=== PATIENT | male | born 1950 | race Hispanic/Latino ===

== ENCOUNTER 2017-10-13 10:05 | Outpatient (CLI) | payer MEDICARE, OTHER ==
[2017-10-13] MEDS ORDERED: Iopamidol 370 76% 100 ML VIAL ONE (12:31)
== END 2017-10-13 10:06 | disposition home or self-care (01) ==
LOC: BICCT 10:05
PROVIDERS: ATTEND Family Medicine
DX: R31.9 Hematuria, unspecified (principal); K40.90 Unilateral inguinal hernia, without obstruction or gangrene, not specified as recurrent; N32.89 Other specified disorders of bladder
CPT/HCPCS: 74178

== ENCOUNTER 2017-10-22 15:59 | Outpatient (CLI) | payer MEDICARE, OTHER ==
[2017-10-22 17:16] LABS: Hemoglobin 14.9 g/dL (14.0-18.0); Mean Corpuscular Hemoglobin 32.1 pg (27.0-31.0); Mean Corpuscular Volume 94.6 fl (80.0-94.0); Mean Platelet Volume 7.8 fL (7.4-10.4); Platelet Count 220 thou/uL (130-400); RBC Distribution Width 11.8 % (11.5-14.5); Red Blood Cell (RBC) Count 4.64 mill/uL (4.70-6.10); White Blood Cell (WBC) Count 9.8 thou/uL (4.8-10.8)
[2017-10-22 17:17] LABS: Bilirubin Negative (Negative); Blood, Urine Negative (Negative); Clarity CLEAR (Clear); Glucose, Urine (Dipstick) Negative (Negative); Leukocyte Negative (Negative); Nitrite Negative (Negative); Protein, Urine (Dipstick) Negative (Neg-Trace); Specific Gravity, Urine 1.029 (1.002-1.036); Urobilinogen 0.2 mg/dL (0.2-1.0); pH, Urine 5.5 (5.0-9.0)
[2017-10-22 17:20] LABS: PTT 26.5 SEC (22.9-36.1); Prothrombin Time 13.2 SEC (12.0-14.7)
[2017-10-22 17:22] LABS: Bacteria/HPF None Seen HPF (None Seen); Hyaline Casts/LPF 0-3 HYALINE CAST LPF (0-3 Hyaline); Pathc Cast-AUWi Flag 0.13 (0-2.49); Squamous Epithelial None Seen HPF (0-3); WBC/HPF 0-3 HPF (0-3)
[2017-10-22 17:33] LABS: Anion Gap 12 mmol/L (10-20); BUN (Urea Nitrogen) 18 mg/dL (8.4-25.7); Calc. Creatinine Clearance 0 mL/min (70-130); Calcium 9.6 mg/dL (7.8-10.44); Carbon Dioxide 27 mmol/L (23-31); Chloride 103 mmol/L (98-107); Estimated GFR-MDRD Greater than 90; Glucose 89 mg/dL (80-115); Potassium 4.4 mmol/L (3.5-5.1); Sodium 138 mmol/L (136-145)
--- NOTE | 2017-10-25 09:25 | EKG ---
Test Reason : Blood Pressure : / mmHG Vent. Rate : 058 BPM Atrial Rate : 058 BPM P-R Int : 128 ms QRS Dur : 070 ms QT Int : 402 ms P-R-T Axes : 065 025 033 degrees QTc Int : 394 ms Sinus bradycardia Otherwise normal ECG No previous ECGs available Confirmed by KATHRIN MOREL ([id number]) on 10/25/2017 9:25:02 AM Referred By: PAULY Confirmed By:KATHRIN MOREL
== END 2017-10-22 16:00 | disposition home or self-care (01) ==
LOC: LABBT 15:59
PROVIDERS: ATTEND Urology
DX: Z01.818 Encounter for other preprocedural examination (principal); C67.9 Malignant neoplasm of bladder, unspecified
CPT/HCPCS: 80048; 81001; 85027; 85610; 85730; 86850; 86900; 86901; 93005; 93010

== ENCOUNTER 2017-10-27 11:25 | Day surgery (SDC) | payer MEDICARE, OTHER ==
[2017-10-22 16:21] VITALS: BMI 22.6
[2017-10-27] MEDS ORDERED: Fentanyl 100 MCG/2 ML VIAL ONE ×2 (11:53→14:15)
[2017-10-27] MEDS ORDERED: HYDROmorphone 0.5 MG/0.5 ML SYRINGE ONE (11:53)
[2017-10-27] MEDS ORDERED: Levofloxacin 500 mg/D5W 100 ml Premix Bag ONE (12:57)
[2017-10-27] MEDS ORDERED: ADMIXTURE FEE IV SCH (13:00)
[2017-10-27] MEDS ORDERED: MITOMYCIN IV SCH (13:00)
[2017-10-27] MEDS ORDERED: STERILE WATER IV SCH (13:00)
[2017-10-27] MEDS ORDERED: MITOMYCIN I-VESIC SCH (13:15)
[2017-10-27] MEDS ORDERED: STERILE WATER I-VESIC SCH (13:15)
[2017-10-27] MEDS ORDERED: ADMIXTURE FEE I-VESIC SCH (13:15)
[2017-10-27] MEDS ORDERED: Midazolam HCl 2 mg/2 ml Vial ONE (14:15)
[2017-10-27] MEDS ORDERED: Lidocaine 1% PF 5 ML VIAL ONE (14:39)
[2017-10-27] MEDS ORDERED: PHENYLEPHRINE-NS 100 MCG/ML 10 ML SYRINGE ONE (14:39)
[2017-10-27] MEDS ORDERED: Propofol 200 MG/20 ML VIAL ONE (14:39)
[2017-10-27] MEDS ORDERED: Succinylcholine Chloride 20 MG/ML 10 ml SYRINGE FS ONE (14:39)
[2017-10-27] MEDS ORDERED: Glycopyrrolate 0.2 MG/ML 5 ML SYRINGE ONE (14:39)
[2017-10-27] MEDS ORDERED: B & O ONE (14:47)
[2017-10-27] MEDS ORDERED: SUGAMMADEX SODIUM 200 MG/2 ML VIAL ONE (15:05)
--- NOTE | 2017-10-27 15:13 | OP ---
DATE OF PROCEDURE: 10/27/2017 SERVICE: Urology. SURGEON: Trace Luther M.D. PREOPERATIVE DIAGNOSIS: Bladder mass. POSTOPERATIVE DIAGNOSIS: Urothelial carcinoma. PROCEDURE PERFORMED: Transurethral resection of bladder tumor between 2 and 5 cm. INDICATIONS FOR PROCEDURE: Mr. Shah is a 67-year-old male who was sent to me for leonel s hematuria and CT demonstrating a concerning bladder mass. After reviewing the CT, I told him there was a high probability that this mass represented the urothelial carcinoma based on its appearance, I gave him the option of either consider cystoscopy in the office for diagnosis or going straight to the operating room with plans to do a resection with mitomycin C afterwards, he elected to go straigh t to the OR instead, risks and benefits of the surgery have been discussed including a possible negat chasity cystoscopy and he has agreed to proceed forward. DESCRIPTION OF PROCEDURE: After identification of his armband and verification of consent, the patie nt was brought to the operating room where he underwent general anesthesia with endotracheal intubati on as well as paralysis. He was then placed in dorsal lithotomy position, prepped and draped in usua l sterile fashion. After appropriate timeout, a lubricated 24 Syriac rigid cystoscope with visual ob turator was then placed through the urethra into the bladder. The urethra was unremarkable. The pro state demonstrated calcifications but no significant hypertrophy. The bladder had a notable flat pap illary-type tumor along the right bladder wall just cephalad to the ureteral orifice with significant microsatellite lesions surrounding the primary lesion. No other tumors were noted on full cystoscop y. Both ureters were in orthotopic location effluxing clear urine. The visual obturator was then sw itched out for the bladder gyrus resectoscope loop. Resection was carried out with the bladder parti ally underdistended to avoid obturator nerve reflex. The lesion was resected completely and detrusor fibers were visible underneath the resection site. The remaining microsatellite lesions surrounding the primary tube were just fulgurated as they were too small to resect. Total fulguration area was approximately 4-5 cm with the primary tumor measuring about 2-3 cm. Upon completion, there was excel lent hemostasis. The base was cauterized again to ensure that there was no bleeding. The bladder wa s partially underdistended to ensure that there was no bleeding that was started with the bladder plu s the tumor was evacuated using the resectoscope and then the bladder was refilled and the resectosco pe removed. An 18 Syriac Tovar catheter was then placed in through the urethra into the bladder and drained completely. The bladder was flushed once and was completely clear. Mitomycin-C 40 mg and 20 mL of water was instilled into the catheter into the bladder with a cap placed over the tip of the F oley. B and O suppository was placed in the patient's rectum. He was then awakened and taken to PAC U for recovery in stable condition. COMPLICATIONS: None. ESTIMATED BLOOD LOSS: Minimal. RETAINED TUBES AND DRAINS: An 18 Syriac Tovar catheter capped with mitomycin C instilled. SPECIMENS: Bladder tumor. DISPOSITION: Patient will be discharged home after he stays in the PACU for an hour and had his jermaine mycin C drained out. He will undergo void trial and then can be discharged home with followup on an outpatient basis.
== END 2017-10-27 20:29 | disposition home or self-care (01) ==
LOC: SDC 11:25
PROVIDERS: ATTEND Urology
PROC: 0TBB8ZX Excision of Bladder, Via Natural or Artificial Opening Endoscopic, Diagnostic (ICD-10-PCS; principal; 2017-10-27)
DX: C67.9 Malignant neoplasm of bladder, unspecified (principal); K21.9 Gastro-esophageal reflux disease without esophagitis; F17.210 Nicotine dependence, cigarettes, uncomplicated; Z88.0 Allergy status to penicillin; Z91.040 Latex allergy status; Z91.048 Other nonmedicinal substance allergy status; Z98.890 Other specified postprocedural states
CPT/HCPCS: 51798; 52235; 88307; J9280; 88305; A4216; J0131; J1170; J1956; J2001; J2250; J2704; J3010

== ENCOUNTER 2018-05-26 10:36 | Outpatient (CLI) | payer MEDICARE, OTHER ==
--- NOTE | 2018-05-26 12:42 | MRI ---
MRI RIGHT SHOULDER WITHOUT CONTRAST: Date: 05/26/18 HISTORY: Tear of rotator cuff. M75.101. COMPARISON: None. FINDINGS: Biceps Tendon: The extra-articular biceps tendon is torn, scarred down to the intertubercular groove. No normal intr a-articular biceps tendon is appreciated. Labrum: There is tearing throughout the superior and posterior labrum with loss of volume of anterior inferio r labrum, likely chronic tearing. Rotator Cuff: There is extensive undersurface partial tearing and fraying of the supraspinatus tendon proximal to t he footprint with interstitial delamination extending into the footprint at the posterior 5 mm fibers . Mild tendinosis and interstitial tearing of the infraspinatus tendon. A full thickness perforation is not appreciated. There is extensive undersurface deep fiber partial tearing of the subscapularis craniad fibers. Soft Tissues: Moderate subacromial/subdeltoid bursal effusion. There is synovitis of the rotator interval. Axillary pouch is thickened. Bones: Mild degenerative changes acromioclavicular joint. Type III acromion with thickened undersurface oste ophyte at the coracoacromial ligament insertion. Subacromial space is thus narrowed to approximately 4 mm. Cartilage: No high grade full thickness chondral loss is appreciated. Muscles: Muscle bulk is normal. No atrophy. IMPRESSION: 1. Rupture of the extra-articular biceps tendon at the intertubercular groove, scarred down, with no intra-articular biceps tendon remaining. 2. Extensive tearing throughout the labrum. 3. High grade undersurface partial tearing of nearly the entire supraspinatus tendon, approximately 50-65%, separate from the footprint with interstitial delamination extending to the footprint of the posterior 5 mm fibers. No full thickness perforation. 4. High grade undersurface partial tearing of subscapularis. 5. Fibrosis along the rotator interval with thickened axillary pouch can be seen with capsulitis in the correct clinical setting. 6. Type III acromion. Narrowing of subacromial space, approximately 4 mm, with moderate subacromial/ subdeltoid bursal effusion. POS: [facility]
== END 2018-05-26 10:37 | disposition home or self-care (01) ==
LOC: TBSIIMAG 10:36
PROVIDERS: ATTEND Orthopaedic Surgery
DX: M75.111 Incomplete rotator cuff tear or rupture of right shoulder, not specified as traumatic (principal); S46.211A Strain of muscle, fascia and tendon of other parts of biceps, right arm, initial encounter; S43.491A Other sprain of right shoulder joint, initial encounter; M25.411 Effusion, right shoulder; M25.811 Other specified joint disorders, right shoulder

== ENCOUNTER 2018-11-05 10:01 | Outpatient (CLI) | payer MEDICARE, OTHER ==
--- NOTE | 2018-11-05 11:04 | RAD ---
CHEST TWO VIEWS: History: Dyspnea. Comparison: 10-31-15 FINDINGS: Cardiac silhouette and pulmonary vasculature are unremarkable. Mediastinum is midline. No confluent a irspace consolidation, pneumothorax, or pleural fluid are apparent. IMPRESSION: No active cardiopulmonary abnormalities are demonstrated. POS: [facility]
== END 2018-11-05 10:02 | disposition home or self-care (01) ==
LOC: RAD 10:01
PROVIDERS: ATTEND Internal Medicine
DX: R06.00 Dyspnea, unspecified (principal)
CPT/HCPCS: 71046

== ENCOUNTER 2018-11-11 14:57 | Outpatient (CLI) | payer MEDICARE, OTHER | END 2018-11-11 14:58 | disposition home or self-care (01) | LOC: CP 14:57 | PROVIDERS: ATTEND Internal Medicine | DX: R07.9 Chest pain, unspecified (principal); R06.00 Dyspnea, unspecified; G47.33 Obstructive sleep apnea (adult) (pediatric) | CPT/HCPCS: 94060; 94727; 94729 ==

== ENCOUNTER 2018-11-17 10:50 | Outpatient (CLI) | payer MEDICARE, OTHER ==
[~2018-11-17 10:50] MED LIST: Iopamidol 370 76% 100 ML VIAL ONE
--- NOTE | 2018-11-17 13:50 | CT ---
CT ABDOMEN AND PELVIS PERFORMED WITH AND WITHOUT CONTRAST ENHANCEMENT: History: Bladder cancer. Surgery to the remove the cancer and chemotherapy. Comparison: 10-13-17, 09-24-16 CT examinations. FINDINGS: The lung bases are clear. The liver, spleen, pancreas, and gallbladder regions all appear unremarkable. Right and left adrenal glands and right and left kidneys are normal in size. No renal calculi. No obs truction. There is a left parapelvic renal cyst present. No dilatation of either collecting system or evidence of any filling defects within either the ureters or within the collecting systems within th e kidneys. There is no significant periaortic adenopathy. There is a vu mesentery present. This alvarez s been noted on the previous exams. It is associated with some small mesenteric nodes. I do not see i f there is a definite interval change in the size of the nodes as compared to the 10-13-17 study, slig htly more prominent than on the earlier exams. CT OF PELVIS PERFORMED WITH AND WITHOUT CONTRAST ENHANCEMENT: The appendix is normal. No bladder mass is appreciated. No significant pelvic lymphadenopathy. IMPRESSION: 1. No signs of any metastatic disease. No signs of any abnormal adenopathy within the abdomen or pelv is. 2. Vu mesentery with slightly prominent mesenteric nodes, essentially stable. POS: [facility]
== END 2018-11-17 10:51 | disposition home or self-care (01) ==
LOC: BICCT 10:50
PROVIDERS: ATTEND Urology
DX: C67.2 Malignant neoplasm of lateral wall of bladder (principal); R93.5 Abnormal findings on diagnostic imaging of other abdominal regions, including retroperitoneum
CPT/HCPCS: 74178; 82565; Q9967

== ENCOUNTER 2018-12-20 18:00 | Outpatient (CLI) | payer MEDICARE, OTHER | END 2018-12-20 18:01 | disposition home or self-care (01) | LOC: SLEEPLAB 18:00 | PROVIDERS: ATTEND Internal Medicine | DX: G47.33 Obstructive sleep apnea (adult) (pediatric) (principal); R53.83 Other fatigue; K21.9 Gastro-esophageal reflux disease without esophagitis; R06.83 Snoring; R35.1 Nocturia; R51 Headache; G47.00 Insomnia, unspecified; G47.10 Hypersomnia, unspecified; R06.3 Periodic breathing | CPT/HCPCS: 95806 ==

== ENCOUNTER 2019-05-11 07:11 | Outpatient (CLI) | payer MEDICARE, OTHER ==
--- NOTE | 2019-05-11 09:20 | CT ---
CT ABDOMEN AND PELVIS WITH AND WITHOUT IV CONTRAST: HISTORY: Cancer of the lateral wall of the urinary bladder COMPARISON: 11/17/2018 FINDINGS: The lung bases are clear. No calcified gallstones are seen. The liver, spleen, pancreas, adrenal glan ds are normal. No free air, free fluid or lymphadenopathy seen in the abdomen or pelvis. There are vascular calcifications without evidence of aneurysmal dilatation of the abdominal aorta. Degenerativ e changes are present in the spine. No osteolytic or osteoblastic lesions are identified. The small bowel loops are not abnormally dilated. A normal-appearing appendix is seen. There is colonic diverti culosis. No calculi are seen in the kidneys, ureters or the urinary bladder. No hydroureteronephrosis seen on either side. Calcifications the prostate gland are again noted. Postcontrast images demonstrate no evidence of renal mass. There is normal contrast excretion into the ureters and urinary bladder. A sm all right fat-containing inguinal hernia is again seen. IMPRESSION: No evidence of metastatic disease.
[2019-05-11] MEDS ORDERED: ISOVUE-370 76%-LOCM 1 ML ONE (09:35)
== END 2019-05-11 07:12 | disposition home or self-care (01) ==
LOC: BICCT 07:11
PROVIDERS: ATTEND Urology
DX: C67.2 Malignant neoplasm of lateral wall of bladder (principal)
CPT/HCPCS: 74178; 82565; Q9966

== ENCOUNTER 2019-11-10 07:23 | Outpatient (CLI) | payer MEDICARE, OTHER ==
--- NOTE | 2019-11-10 08:38 | CT ---
EXAM: CT Abdomen Pelvis W WO con PROVIDED CLINICAL HISTORY: Cancer of lateral wall of urinary bladder COMPARISON: 05/11/2019 FINDINGS: The visualized lung bases are free of significant opacity. No evidence for urinary tract calculi or hydronephrosis. The liver, spleen, pancreas, kidneys and adr enal glands demonstrate an unremarkable CT appearance. The delayed images demonstrate no evidence for filling defect involving the renal collecting systems, opacified ureters or urinary bladder. There is no bowel dilatation, inflammatory fat stranding, free fluid or lymph node enlargement appare nt. Sigmoid colonic diverticulosis. The osseous structures demonstrate no concerning lytic or blastic lesions. IMPRESSION: No evidence for an acute process.
[2019-11-10] MEDS ORDERED: Iopamidol-370 76% 500 ML 1 ML ONE (13:30)
== END 2019-11-10 07:24 | disposition home or self-care (01) ==
LOC: BICCT 07:23
PROVIDERS: ATTEND Urology
DX: C67.2 Malignant neoplasm of lateral wall of bladder (principal)
CPT/HCPCS: 74178; 82565; Q9967

== ENCOUNTER 2020-04-19 15:46 | Outpatient (CLI) | payer MEDICARE, OTHER ==
--- NOTE | 2020-04-19 16:35 | RAD ---
RIGHT KNEE: 04/19/20 Four views. HISTORY: Knee pain. Medial and lateral joint spaces are reserved. No significant degenerative change. No joint effusion o r osseous abnormality. IMPRESSION: Unremarkable right knee. POS: [facility]
--- NOTE | 2020-04-19 16:36 | RAD ---
LEFT KNEE: 04/19/20 Four views. HISTORY: Knee pain. Joint spaces are preserved. No significant degenerative change. No joint effusion. No acute osseous a bnormality. IMPRESSION: Unremarkable left knee. POS: [facility]
== END 2020-04-19 15:47 | disposition home or self-care (01) ==
LOC: BICRAD 15:46
PROVIDERS: ATTEND Family Medicine
DX: M25.561 Pain in right knee (principal); M25.562 Pain in left knee; M17.10 Unilateral primary osteoarthritis, unspecified knee

== ENCOUNTER 2020-05-17 09:05 | Outpatient (CLI) | payer MEDICARE, OTHER ==
--- NOTE | 2020-05-17 10:23 | CT ---
CT chest with IV contrast HISTORY: Dyspnea. Cardiac arrhythmia. COMPARISON: 09/12/2016. FINDINGS: Lungs are well-inflated. No focal mass. Scattered tiny calcified granulomata and calcified mediastinal lymph nodes are consistent with healed granulomatous disease. No pleural fluid or pneumothorax. No lobar consolidation. No mediastinal adenopathy. Normal branching of the great vessels at the aortic arch. IMPRESSION : No significant abnormalities are demonstrated.
[2020-05-17] MEDS ORDERED: Iopamidol 370 76% 100 ML VIAL ONE (13:25)
== END 2020-05-17 09:06 | disposition home or self-care (01) ==
LOC: CT 09:05
PROVIDERS: ATTEND Internal Medicine Cardiovascular Disease
DX: R06.02 Shortness of breath (principal)
CPT/HCPCS: 36415; 71260; 80053; 80061; 82565; 83880; 84443; 85025; Q9967

== ENCOUNTER 2021-01-11 07:33 | Outpatient (CLI) | payer MEDICARE, OTHER ==
[2021-01-11] MEDS ORDERED: Iopamidol-370 76% 500 ML 1 ML ONE (15:07)
== END 2021-01-11 07:34 | disposition home or self-care (01) ==
LOC: BICCT 07:33
PROVIDERS: ATTEND Urology
DX: C67.2 Malignant neoplasm of lateral wall of bladder (principal)
CPT/HCPCS: 74178; 82565; Q9967

== ENCOUNTER 2021-06-28 14:41 | Outpatient (CLI) | payer MEDICARE, OTHER | END 2021-06-28 14:42 | disposition home or self-care (01) | LOC: ULT 14:41 | PROVIDERS: ATTEND Urology | DX: N50.812 Left testicular pain (principal); N50.3 Cyst of epididymis | CPT/HCPCS: 76870; 93976 ==

== ENCOUNTER 2021-07-25 07:36 | Outpatient (CLI) | payer MEDICARE, OTHER | END 2021-07-25 07:37 | disposition home or self-care (01) | LOC: TBSIIMAG 07:36 | PROVIDERS: ATTEND Family Medicine | DX: M48.061 Spinal stenosis, lumbar region without neurogenic claudication (principal); M53.3 Sacrococcygeal disorders, not elsewhere classified; M51.36 Other intervertebral disc degeneration, lumbar region; M51.26 Other intervertebral disc displacement, lumbar region; M51.37 Other intervertebral disc degeneration, lumbosacral region | CPT/HCPCS: 72148 ==

== ENCOUNTER 2022-11-21 14:26 | Outpatient (CLI) | payer MEDICARE, OTHER | END 2022-11-21 14:27 | disposition home or self-care (01) | LOC: SCSMRI 14:26 | PROVIDERS: ATTEND Orthopaedic Surgery | DX: M23.92 Unspecified internal derangement of left knee (principal); S83.242A Other tear of medial meniscus, current injury, left knee, initial encounter ==

== ENCOUNTER 2023-01-21 15:34 | Outpatient (CLI) | payer MEDICARE, OTHER ==
[2023-01-21 17:44] LABS: Hemoglobin 14.4 g/dL (13.5-17.5); Mean Corpuscular Hemoglobin 29.9 pg (27.0-33.0); Mean Corpuscular Volume 90.9 fl (81.2-95.1); Mean Platelet Volume 9.8 fl (7.4-10.4); Platelet Count 275 10x3/uL (150-450); RBC Distribution Width 13.5 % (11.5-14.5); Red Blood Cell (RBC) Count 4.81 10x6/uL (4.32-5.72); White Blood Cell (WBC) Count 8.8 10x3/uL (3.5-10.5)
[2023-01-21 17:47] LABS: MDiff Complete? YES; Manual Diff?? YES
[2023-01-21 17:55] LABS: ALT (SGPT) 21 U/L (8-55); AST (SGOT) 23 U/L (5-34); Alkaline Phosphatase 91 U/L (40-110); Anion Gap 14 mmol/L (10-20); BUN (Urea Nitrogen) 12 mg/dL (8.4-25.7); Bilirubin, Total 0.4 mg/dL (0.2-1.2); Calc. Creatinine Clearance 0 mL/min (70-130); Calcium 8.6 mg/dL (7.8-10.44); Carbon Dioxide 25 mmol/L (23-31); Chloride 105 mmol/L (98-107); Estimated GFR 92; Globulin 2.9 g/dL (2.4-3.5); Glucose 92 mg/dL (83-110); Potassium 4.5 mmol/L (3.5-5.1); Protein, Total 6.9 g/dL (5.8-8.1); Sodium 139 mmol/L (136-145)
[2023-01-21 18:14] LABS: Eosinophils 1 % (0-10); Lymphocytes 51 % (21-51); Monocytes 10 % (0-10); Neutrophil 37 % (42-75); Reactive Lymphocytes 1 % (0-10)
[2023-01-21 18:15] LABS: Platelet Morphology Comment Appears Adequate; RBC Morph Comment Within Normal Limits
== END 2023-01-21 15:35 | disposition home or self-care (01) ==
LOC: LABBT 15:34
PROVIDERS: ATTEND Surgery
DX: Z01.818 Encounter for other preprocedural examination (principal); M79.89 Other specified soft tissue disorders
CPT/HCPCS: 80053; 85025; 93005; 93010

== ENCOUNTER 2023-01-23 07:23 | Day surgery (SDC) | payer MEDICARE, OTHER ==
[2023-01-22 10:13] VITALS: BMI 23.3
[2023-01-23] MEDS ORDERED: Bupivacaine/Epinephrine 0.25% 30 ML VIAL ONE (08:30)
[2023-01-23] MEDS ORDERED: Fentanyl 250 MCG/5 ML VIAL ONE (08:41)
[2023-01-23] MEDS ORDERED: SUGAMMADEX SODIUM 200 MG/2 ML VIAL ONE (08:41)
[2023-01-23] MEDS ORDERED: Levofloxacin 500 mg/D5W 100 ml Premix Bag ONE (09:21)
[2023-01-23] MEDS ORDERED: Lidocaine 1% PF 5 ML VIAL ONE (09:28)
[2023-01-23] MEDS ORDERED: PROPOFOL 200 MG/20 ML VIAL ONE (09:28)
[2023-01-23] MEDS ORDERED: Dexamethasone 20 MG/5 ML VIAL ONE (09:28)
[2023-01-23] MEDS ORDERED: Ondansetron PF 4 MG/2 ML Vial ONE (09:28)
[2023-01-23] MEDS ORDERED: ePHEDrine Sulfate 50 MG/10 ML VIAL ONE (09:28)
== END 2023-01-23 11:15 | disposition home or self-care (01) ==
LOC: SDC 07:23
PROVIDERS: ATTEND Surgery
PROC: 0JB70ZZ Excision of Back Subcutaneous Tissue and Fascia, Open Approach (ICD-10-PCS; principal; 2023-01-23)
DX: D17.1 Benign lipomatous neoplasm of skin and subcutaneous tissue of trunk (principal); K21.9 Gastro-esophageal reflux disease without esophagitis; Z85.51 Personal history of malignant neoplasm of bladder; Z87.891 Personal history of nicotine dependence; Z79.899 Other long term (current) drug therapy; Z88.0 Allergy status to penicillin; Z91.040 Latex allergy status; Z91.048 Other nonmedicinal substance allergy status
CPT/HCPCS: 88304; J1100; J1956; J2405; J2704; J3010